=== PATIENT | female | born 1955 | race Two or more races ===

== ENCOUNTER 2017-02-19 11:58 | Day surgery (SDC) | payer BC ==
[~2017-02-19] VITALS: Ht 182.9 cm; Wt 90.3 kg
[2017-02-19 13:41] VITALS: BP 124/78; PULSE 58; RESP 16
[2017-02-19] MEDS ORDERED: [UNRECOGNIZED DRUG - REMARK] (14:15)
[2017-02-19 14:21] VITALS: Ht 182.9 cm; Wt 90.3 kg
[2017-02-19] MEDS ORDERED: FENTAnyl 50 MCG/ML VIAL ONE (14:35)
[2017-02-19] MEDS ORDERED: MIDAZOLAM 1 MG/ML 2 ML INJ ONE ×2 (14:35)
--- NOTE | 2017-02-19 14:35 | GILP ---
DATE OF PROCEDURE: 02/19/2017 NAME OF PROCEDURES: Colonoscopy and biopsy. SURGEON: Renzo Jefferson MD PREOPERATIVE DIAGNOSIS: Screening colonoscopy. POSTOPERATIVE DIAGNOSES 1. Colonoscopy all the way to the cecum. 2. Small transverse colon polyp was removed using the biopsy forceps. 3. Diverticulosis of the colon. 4. Internal hemorrhoids. INDICATION FOR THE PROCEDURE: Mr. Dany Cruz is a 61-year-old male patient who was sched uled for screening colonoscopy. The procedure and possible complications were well explained to the patient. He understood and cons ented to the procedure. DESCRIPTION OF PROCEDURE: Under the influence of fentanyl and Versed, the colonoscope was carefully introduced in the rectum, and under direct vision, it was advanced all the way to the cecum. FINDINGS: The patient had a small transverse colon polyp, and it was removed using the biopsy force ps. He was noted to have diverticulosis of the colon and internal hemorrhoids. He tolerated the procedure very well, and there was no complication from the procedure. At the end of the procedure, he was awake with stable vital signs and he was discharged home to the care of his family. IMPRESSION: 1. Colonoscopy all the way to the cecum. 2. Small transverse colon polyp was removed using the biopsy forceps. 3. Diverticulosis of the colon. 4. Internal hemorrhoids. PLAN: 1. Await histopathology report. 2. Next screening colonoscopy in 10 years. 3. The patient was advised high fiber diet. Dictated By: RENZO MARTINES/JESS Conf#: [id number] DID#: [id number]
[2017-02-19 14:40] VITALS: BP 119/73
[2017-02-19 14:45] VITALS: BP 119/66; RESP 18
== END 2017-02-19 15:26 | disposition home or self-care (01) ==
LOC: GIL 11:58
PROVIDERS: ATTEND Internal Medicine Gastroenterology
DX: Z12.11 Encounter for screening for malignant neoplasm of colon (principal); D12.3 Benign neoplasm of transverse colon; K57.90 Diverticulosis of intestine, part unspecified, without perforation or abscess without bleeding; K64.8 Other hemorrhoids
CPT/HCPCS: 45380; 88305; J2250; J3010; Z7610